=== PATIENT | female | born 1975 | race Caucasian/White ===

== ENCOUNTER 2016-11-22 19:11 | Emergency (ER) | payer OTHER, MEDICARE ==
[~2016-11-22] VITALS: Ht 165.1 cm; Wt 84.0 kg
[2016-11-22 19:12] VITALS: BP 150/69; PULSE 102; RESP 18; TEMP 98.7; O2SAT 97
[2016-11-22] MEDS ORDERED: METF1000 PO (20:39)
[2016-11-22] MEDS ORDERED: TIZA2TAB PO (20:39)
[2016-11-22] MEDS ORDERED: VIST50CA PO (20:39)
[2016-11-22] MEDS ORDERED: PREG25 PO (20:39)
[2016-11-22] MEDS ORDERED: PROM25TA10 PO (20:39)
[2016-11-22] MEDS ORDERED: FENT25DI T-DERMAL (20:39)
[2016-11-22] MEDS ORDERED: MSIR15 PO (20:39)
[2016-11-22] MEDS ORDERED: AMIT50TA3 PO (20:39)
[2016-11-22] MEDS ORDERED: SERO25TA PO (20:39)
[2016-11-22] MEDS ORDERED: ZOFR4TAB PO (20:39)
--- NOTE | 2016-11-22 20:59 | PD ---
HPI Chief Complaint: Fall Time Seen by Provider: 20:59 Travel History International Travel<30 days: No Contact w/Intl Traveler<30days: No Traveled to known affect area: No History of Present Illness HPI Patient comes in complaining of right-sided rib pain ongoing since Tuesday. Patient states that she tripped and fell injuring her ribs. Patient states that she was getting better however she fell again today reinjuring them. Pain is worse with deep inspiration and certain movement. Patient denies anything making it better. Family members tried wrapping her with Main wrap with no improvement of symptoms. Patient also has concerns over possible UTI. Patient reports having pressure-like pain in her suprapubic area has a history of UTIs. Patient reports she had a stimulator in place and had removed secondary to her needing MRIs of her back. Denies any fevers, back pain, nausea, vomiting, chest pain, shortness of breath, or numbness or tingling anywhere. PFSH Past Medical History Depression: Yes Diabetes: Yes ?: Not Social History Alcohol Use: No Tobacco Use: No Substance Use: No Allergies-Medications (Allergen,Severity, Reaction): Coded Allergies: Vancomycin (Verified Allergy, Severe, 11/22/16) Reported Meds & Prescriptions Reported Meds & Active Scripts Active Naprosyn (Naproxen) 500 Mg Tab 500 Mg PO Q12HR PRN Flomax (Tamsulosin HCl) 0.4 Mg Cap 0.4 Mg PO HS 7 Days Bactrim DS (Sulfamethoxazole-Trimethoprim) 800-160 Mg Tab 1 Tab PO BID Reported Phenergan (Promethazine HCl) 25 Mg Tablet 25 Mg PO Q6H PRN Zofran (Ondansetron HCl) 4 Mg Tab 4 Mg PO Q8HR PRN Fentanyl Patch 72 HR (Fentanyl) 25 Mcg/Hr Patch 25 Mcg T-DERMAL Q72H Morphine IR (Morphine Sulfate) 15 Mg Tab 15 Mg PO Q4H PRN Amitriptyline (Amitriptyline HCl) 50 Mg Tab 50 Mg PO HS Metformin (Metformin HCl) 1,000 Mg Tab 1,000 Mg PO BIDPC With meals Vistaril (Hydroxyzine Pamoate) 50 Mg Cap 50 Mg PO TID Seroquel (Quetiapine Fumarate) Unknown Strength Tab Unknown Dose PO BID Tizanidine (Tizanidine HCl) Unknown Strength Tab Unknown Dose PO TID Lyrica (Pregabalin) Unknown Strength Cap Unknown Dose PO BID Review of Systems Except as stated in HPI: all other systems reviewed are Neg Physical Exam Narrative GENERAL: Well-developed, overly nourished, in no acute distress, and non-ill appearing. SKIN: Focused skin assessment warm and dry. HEAD: Atraumatic. Normocephalic. EYES: Pupils equal and round. EOMI. No scleral icterus. No injection or drainage. ENT: No nasal bleeding or discharge. Mucous membranes pink and moist. NECK: Trachea midline. Supple. No nuclear rigidity. CARDIOVASCULAR: Regular rate and rhythm. No murmur appreciated. RESPIRATORY: No accessory muscle use. No respiratory distress. Clear to auscultation. Breath sounds equal bilaterally. Patient reports that his palpation right lateral rib cage. There is no crepitus or step-off. GASTROINTESTINAL: Abdomen soft, non-tender, nondistended, and no guarding. Hepatic and splenic margins not palpable. Normal bowel sounds 4. No pulsatile mass. No CVA tenderness. MUSCULOSKELETAL: No obvious deformities. No clubbing. No cyanosis. No edema. Full range of motion. NEUROLOGICAL: Awake and alert. No obvious cranial nerve deficits. Motor grossly within normal limits. Normal speech. PSYCHIATRIC: Appropriate mood and affect; insight and judgment normal. Data Data Last Documented VS Vital Signs Date Time Temp Pulse Resp B/P Pulse Ox O2 Delivery O2 Flow Rate FiO2 11/22/16 20:14 Room Air 11/22/16 19:12 98.7 102 18 150/69 97 Orders Urinalysis - C+S If Indicated (11/22/16 20:48) Ketorolac Inj (Toradol Inj) (11/22/16 21:00) Ribs, Uni (W/Exp Cxr-Min 3vw) (11/22/16 ) Urine Culture (11/22/16 20:50) Ct Abd/Pel W/O Iv Contrast (11/22/16 22:10) Tamsulosin (Flomax) (11/22/16 23:00) Sulfamet-Trimeth Ds 800-160 Mg (Bactrim (11/22/16 23:00) Resp Incentive Spirometry (11/22/16 ) Labs Laboratory Tests Test 11/22/16 20:50 Urine Color YELLOW Urine Turbidity HAZY Urine pH 5.5 Urine Specific [place] 1.012 Urine Protein 30 mg/dL Urine Glucose (UA) NEG mg/dL Urine Ketones NEG mg/dL Urine Occult Blood MOD Urine Nitrite POS Urine Bilirubin NEG Urine Urobilinogen LESS THAN 2.0 MG/DL Urine Leukocyte Esterase LARGE Urine RBC /hpf Urine WBC 167 /hpf Urine WBC Clumps OCC Urine Squamous Epithelial 1 /hpf Cells Urine Amorphous Sediment RARE Urine Bacteria MANY /hpf Urine Mucus FEW /lpf Microscopic Urinalysis Comment CULTURE INDICATED MDM Medical Decision Making Medical Screen Exam Complete: Yes Emergency Medical Condition: Yes Interpretation(s) Chest x-ray by radiologist shows: No definite rib fractures. No pneumothorax. CT the abdomen and pelvis read by the radiologist shows: 1. Severe hepatic steatosis. 2. Status post cholecystectomy. 3. Normal appendix. 4. There are 2 bladder calculi measuring 3 and 4 mm. Differential Diagnosis Fracture, strain, contusion, UTI, renal calculi, hydronephrosis, pneumonia, other Narrative Course The patient suffered a minor chest wall contusion. There is no clinical evidence to suggest intrathoracic injury nor cardiac injury at this time. The patient has no significant pain, shortness of breath or dyspnea. The patient moves air well without difficulty and is clear to auscultation. Heart sounds are audible without rubs, murmurs or gallops. There is no palpable crepitus. Pulses are symmetrical and strong. There is no significant tenderness over the lower chest to suggest injury to the liver nor spleen. Chest X-ray was normal without evidence of fracture, pneumothorax or hemothorax. The Mediastinum appeared within normal limits. Diagnosis was discussed with the patient. The patient is to return if develops any worsening pain difficulty breathing, or if coughs up blood or develops fever. Patient was instructed to not to try to wrap her ribs as this can lead to pneumonia. Patient agrees with plan and was recommended to follow up with their regular physician. Patient in no obvious distress upon re-evaluation. All pertinent laboratory/ Radiology result(s) discussed with patient/family. Patient was asked if they wanted to speak to my attending, which the patient did not wish to do at this time. Any questions/concerns in reference to patient diagnosis/condition discussed and clarified prior to patient's discharge. Reinforced sheer importance of close follow up with patient's primary physician or primary care clinic. Instructed patient to return to ED immediately, if symptoms return/ worsen. Pt showed understanding of above instructions. Further instructions and recommendations were detailed in discharge paperwork. Pt ambulated without difficulty out of ED at discharge. Diagnosis Primary Impression: Rib pain on right side Additional Impressions: UTI (urinary tract infection) Qualified Code: N39.0 - Urinary tract infection with hematuria, site unspecified Kidney stone Hepatic steatosis Referrals: Stefano Chawla MD Patient Instructions: General Instructions, Kidney Stones (ED), Rib Contusion ( ED), Urinary Tract Infection in Children (ED) Additional Instructions: Follow-up with your primary care physician and urology in 3-5 days for reevaluation. Follow-up with your primary care physician regarding incidental findings noted on CT. Take all medication as prescribed. Return to the emergency department if symptoms get worse. Med/Other Pt SpecificInfo: Prescription(s) given Scripts Naproxen (Naprosyn)500 Mg [id number] Mg PO Q12HR PRN (PAIN SCALE 1 TO 10) #12 TAB Ref 0 Prov:Ander Flor MD 11/22/16 Tamsulosin (Flomax)0.4 Mg Cap0.4 Mg PO HS 7 Days Ref 0 Prov:Ander Flor MD 11/22/16 Sulfamethoxazole-Trimethoprim (Bactrim DS)800-160 Mg Tab1 Tab PO BID #14 TAB Ref 0 Prov:Ander Flor MD 11/22/16 Disposition: 01 DISCHARGE HOME Condition: Stable Jose Israel Nov 22, 2016 20:59
[2016-11-22] MEDS ORDERED: KETOROLAC TROMETHAMINE 60 MG/2 ML (IM) VIAL IM ONE (21:00)
--- NOTE | 2016-11-22 21:33 | RADRPT ---
EXAM DATE/TIME: 11/22/2016 21:19 [facility] COMPARISON: No previous studies available for comparison. INDICATIONS : Right sided rib pain after fall. MEDICAL HISTORY : Diabetes mellitus type II. SURGICAL HISTORY : Cholecystectomy. ENCOUNTER: Initial ACUITY: 3 days PAIN SCORE: 8/10 LOCATION: Right ribs. FINDINGS: Multiple views of the right ribs were performed. There is no evidence of displaced fracture. No jose tructive lesions or areas of periosteal thickening are seen. Expiratory view of the chest is negativ e for pneumothorax. The mediastinal structures are midline. Calcified granulomas. CONCLUSION: No definite rib fractures. No pneumothorax. Carlos Lopez MD on November 22, 2016 at 21:30 Board Certified Radiologist. This report was verified electronically.
[2016-11-22 21:51] LABS: BACTERIA, URINE MANY /hpf; BLOOD, URINE MOD (NEG); COMMENT (UR) CULTURE INDICATED; CULTURE IF INDICATED CULTURE INDICATED; GLUCOSE,URINE NEG (NEG); KETONE, URINE NEG (NEG); MUCUS URINE FEW /lpf (OCC); PH, URINE 5.5 (5.0-8.5); SQUAMOUS EPITHELIAL CELL URINE 1 /hpf (0-5); URINE COLOR YELLOW (YELLW/STRAW)
[2016-11-22 21:52] LABS: NITRITE,URINE POS (NEG)
--- NOTE | 2016-11-22 22:46 | RADRPT ---
EXAM DATE/TIME: 11/22/2016 22:31 [facility] COMPARISON: No previous studies available for comparison. INDICATIONS : Right side abdominal pain. ORAL CONTRAST: No oral contrast ingested. RADIATION DOSE: 12.52 CTDIvol (mGy) MEDICAL HISTORY : Diabetes mellitus type 2. SURGICAL HISTORY : Cholecystectomy. ENCOUNTER: Initial ACUITY: 1 day PAIN SCALE: 7/10 LOCATION: Right abdomen TECHNIQUE: Volumetric scanning of the abdomen and pelvis was performed. Using automated exposure control and ad justment of the mA and/or kV according to patient size, radiation dose was kept as low as reasonably achievable to obtain optimal diagnostic quality images. DICOM format image data is available electro nically for review and comparison. FINDINGS: LOWER LUNGS: The visualized lower lungs are clear. LIVER: Decreased attenuation without lesion. There is no dilation of the biliary tree. Cholecystectomy clip s. SPLEEN: Normal size without lesion. PANCREAS: Within normal limits. KIDNEYS: Normal in size and shape. There is no mass, stone, or hydronephrosis. ADRENAL GLANDS: Within normal limits. VASCULAR: There is no aortic aneurysm. BOWEL/MESENTERY: The stomach, small bowel, and colon demonstrate no acute abnormality. There is no free intraperitone al air or fluid. ABDOMINAL WALL: Within normal limits. RETROPERITONEUM: There is no lymphadenopathy. BLADDER: No wall thickening or mass. 2 calculi are seen within the lower urinary bladder measuring 3 -4 mm. REPRODUCTIVE: Within normal limits. INGUINAL: There is no lymphadenopathy or hernia. MUSCULOSKELETAL: Within normal limits for patient age. CONCLUSION: 1. Severe hepatic steatosis. 2. Status post cholecystectomy. 3. Normal appendix. 4. There are 2 bladder calculi measuring 3 and 4 mm. Carlos Lopez MD on November 22, 2016 at 22:42 Board Certified Radiologist. This report was verified electronically.
[2016-11-22] MEDS ORDERED: NAPR500 PO (22:57)
[2016-11-22] MEDS ORDERED: BACT800T5 PO (22:57)
[2016-11-22] MEDS ORDERED: TAMS5CAP PO (22:57)
[2016-11-22] MEDS ORDERED: TAMSULOSIN HCL 0.4 MG CAP PO ONE (23:00)
[2016-11-22] MEDS ORDERED: SULFAMETHOXAZOLE-TRIMETHOPRIM DS 800-160 MG TAB PO ONE (23:00)
== END 2016-11-22 23:10 | disposition home or self-care (01) ==
LOC: NEPB 19:11
DX: R07.81 Pleurodynia (principal); N39.0 Urinary tract infection, site not specified; N20.0 Calculus of kidney; K76.0 Fatty (change of) liver, not elsewhere classified; N21.0 Calculus in bladder; F32.9 Major depressive disorder, single episode, unspecified; E11.9 Type 2 diabetes mellitus without complications; Z79.899 Other long term (current) drug therapy
CPT/HCPCS: 71101; 74176; 81001; 87077; 87086; 87186; 96372; 99285; J1885